=== PATIENT | female | born 1965 | race African-American/Black ===

== ENCOUNTER 2018-01-20 10:36 | Inpatient (IN) | payer SELFPAY ==
[2018-01-20] MEDS ORDERED: Albuterol Sulfate 2.5 mg/0.5 ml Neb ONE ×3 (11:07)
[2018-01-20] MEDS ORDERED: Albuterol Sulfate 2.5 mg/3 ml Neb ONE (11:08)
[2018-01-20] MEDS ORDERED: Lorazepam 2 MG/ML VIAL ONE (13:15)
--- NOTE | 2018-01-20 13:24 | HP ---
DATE OF ADMISSION: 01/20/2018 PRIMARY CARE PHYSICIAN: [facility] call admission. The patient is following sometimes [facility]. REASON FOR ADMISSION: Transfer from [place] emergency room for COPD exacerbation. HISTORY OF PRESENT ILLNESS: A 52-year-old female who has underlying history of COPD/asthma as well as a history of smoking. She reports that she quit smoking for last 2 months. She presented to emergency room at [place] [facility] for increasing shortness of breath, cough. The patient reports that she is having cough productive of yellowish green sputum. She was wheezing. She was not able to breathe and her condition day by day gradually getting worse. She was feeling mild shortness of breath for last 1 week, but her condition deteriorated for the last couple of days and last night, she was not able to breathe and that is why she has to go to ER for evaluation. The patient was hypoxic and her saturation was 80%. The patient does not have any previous history of intubation. The patient was initially treated with magnesium sulfate, Solu-Medrol, DuoNeb therapy as well as empiric antibiotic therapy with Rocephin and Levaquin and subsequently the patient was transferred to our emergency room. When the patient came to our emergency room, the patient's condition was a little bit deteriorated, that is why she required BiPAP. Initially, plan was to admit to medical floor, but as the patient's condition deteriorated in the ER and she required BiPAP and that is why we decided to keep this patient in IMCU. The patient denies any lower extremity edema. She denies any calf tenderness. She denies any pleurisy. She denies any UTI symptoms. She denies any constipation, diarrhea. She does report vague chest discomfort, which she attributes to due to her coughing. She also has cough related headache. For the last 2 nights, the patient was not able to sleep because of coughing and shortness of breath. She denies any flu-like illness. She denies any upper respiratory symptoms prior to this. EMERGENCY ROOM COURSE: The patient is given Rocephin 1 gram, Levaquin 500 mg, Solu-Medrol 125 mg, DuoNeb, magnesium sulfate 2 gram and the patient is given albuterol nebulization in our emergency room. ALLERGIES: PENICILLIN. CURRENT HOME: Albuterol nebulization as needed basis. PAST MEDICAL HISTORY: COPD, ex-smoker, history of hepatitis C. PAST SURGICAL HISTORY: , D and C. PAST PSYCHIATRIC HISTORY: Reviewed and negative. SOCIAL HISTORY: The patient is a former smoker. She quit smoking 2 months ago. She drinks alcohol socially. She is a former drug abuser. She abused cocaine, but she reports that she is clean since July. FAMILY HISTORY: No strong family history of premature coronary artery disease, stroke or cancer. REVIEW OF SYSTEMS: All review of system reviewed with the patient and negative except as mentioned in the HPI. Constitutional: Weight loss or gain, ability to conduct usual activities. Skin: Rash, itching. Eyes: Double vision, pain. ENT/Mouth: Nose bleeding, neck stiffness, pain, tenderness. Cardiovascular: Palpitations, dyspnea on exertion, orthopnea. Respiratory: Shortness of breath, wheezing, cough, hemoptysis, fever or night sweats. Gastrointestinal: Poor appetite, abdominal pain, heartburn, nausea, vomiting, constipation, or diarrhea. Genitourinary: Urgency, frequency, dysuria, nocturia. Musculoskeletal: Pain, swelling. Neurologic/Psychiatric: Anxiety, depression. Allergy/Immunologic: Skin rash, bleeding tendency. PHYSICAL EXAMINATION: VITAL SIGNS: In our emergency room, blood pressure 145/82, pulse 100, respiratory rate 20, temperature 98.4, saturation 95% with BiPAP, weight 82.2 kilograms. GENERAL: The patient is currently in mild respiratory distress, on BiPAP. HEAD: Normocephalic, atraumatic. EYES: Pupils round and reactive to light. Extraocular muscle intact. ENT: Oropharynx within normal limits. Moist mucous membranes. No oral lesion , no pharyngeal erythema, no exudate. NECK: Supple, no JVD, no thyromegaly, no carotid bruit. LUNGS: Bilateral end expiratory wheezing, tachypnea. The patient is not able to talk in full sentences. No rales. The patient gets tachypnea with talking. Accessory muscles of respiration in use. CARDIAC: S1, S2 regular, tachycardia, no murmur, no gallop, no rub. ABDOMEN: Soft, bowel sounds present, nontender, nondistended. No organomegaly , no mass, no suprapubic tenderness. BACK: Unremarkable. No CVA tenderness. EXTREMITIES: Upper extremities, passive movement of all joints are normal. Lower extremities, no edema. Good distal pulsation. SKIN: No skin rash. HEMATOLOGICAL: No lymphadenopathy. PSYCHIATRIC: Anxious affect. NEUROLOGIC: Nonfocal examination. SIGNIFICANT LABORATORY DATA: CBC, WBC 11.6, hemoglobin 14.0, platelet 368,000. BMP, sodium 136, potassium 4.3, chloride 100, carbon dioxide 26, BUN 9, creatinine 0.76, glucose 105, calcium 10.0. Lactic acid 1.3. LFT, AST 19, ALT 18, alkaline phosphatase 121, albumin 4.1. CK 86, CK-MB 2.1. Troponin I less than 0.010. Urinalysis unremarkable. IMAGING: CT angiography done at the [place] emergency room showed no evidence of pulmonary embolism, emphysematous changes in both lungs. Chest x-ray consistent with COPD changes, but no acute cardiopulmonary process. EKG showing sinus rhythm. ASSESSMENT AND PLAN: 1. Acute respiratory failure with hypoxia due to chronic obstructive pulmonary disease exacerbation. The patient is requiring BiPAP. We will keep this patient in IMCU. We will consult Pulmonology. We will wean BiPAP as tolerated. We will try to wean oxygen as tolerated. We will treat underlying chronic obstructive pulmonary disease exacerbation. We will closely monitor for any hemodynamic compromise. 2. Acute on chronic obstructive pulmonary disease exacerbation with acute hypoxic respiratory failure. Precipitating factor uncertain, but suspecting weather change and viral illness. The patient will be given empiric antibiotic therapy with Levaquin 500 mg IV daily, DuoNeb every 4 hourly, Dulera 2 puffs inhalation b.i.d., Mucinex 600 mg twice daily, Solu-Medrol 40 mg IV q.6 hourly. Pulmonary group will be consulted. The patient will be given appropriate flu and pneumonia vaccination during this admission. 3. Ex-smoker. The patient is given education to continue to quit smoking. 4. History of polysubstance abuse. We will just check urine drug screen to rule out any possible use of drugs, though the patient claims that she is clean since July. 5. History of hepatitis C. Her LFT is completely normal. I am doubtful about this diagnosis. We will check hepatitis profile to see current status. Her previous ultrasound gallbladder was normal. 6. Deep venous thrombosis prophylaxis. Lovenox 40 mg subcu daily. 7. Gastrointestinal prophylaxis. Pepcid 20 mg p.o. b.i.d. 8. Code status, the patient is full code. The patient does not have any surrogate decision maker. Disposition plan based on clinical course. Upon stabilization in IMCU, the patient will be transferred to medical floor and then we will consider discharging when the patient is more stable. JACE
[2018-01-20] MEDS ORDERED: Cepastat Lozenges 1 LOZ PO PRN (14:12)
[2018-01-20] MEDS ORDERED: cloNIDine 0.1 MG TAB PO PRN (14:12)
[2018-01-20] MEDS ORDERED: Ondansetron PF 4 MG/2 ML Vial IVP PRN (14:12)
[2018-01-20] MEDS ORDERED: Calcium Carbonate 500 MG ChewTAB PO PRN (14:12)
[2018-01-20] MEDS ORDERED: Artificial Tear Sol 15 ML BOT EA EYE PRN (14:12)
[2018-01-20] MEDS ORDERED: Loratadine 10 MG TAB PO PRN (14:12)
[2018-01-20] MEDS ORDERED: Bisacodyl 10 MG SUPP PR PRN (14:12)
[2018-01-20] MEDS ORDERED: HYDROcodone/Acetaminophen 5/325 mg Tablet PO PRN (14:12)
[2018-01-20] MEDS ORDERED: Sodium Chloride 0.65% Nasal 44 ML BOT EA NARE PRN (14:12)
[2018-01-20] MEDS ORDERED: Senokot S 8.6-50 MG TAB PO PRN (14:12)
[2018-01-20] MEDS ORDERED: Zolpidem Tartrate 5 MG TAB PO PRN (14:12)
[2018-01-20] MEDS ORDERED: Loperamide HCl 2 MG CAP PO PRN (14:12)
[2018-01-20] MEDS ORDERED: Acetaminophen 325 MG TAB PO PRN (14:12)
[2018-01-20] MEDS ORDERED: hydrALAZINE 20 MG/ML VIAL SLOW IVP PRN (14:12)
[2018-01-20] MEDS ORDERED: Eucerin (Mineral Oil/Petrolatum,White) 30 gm Jar TOP PRN (14:12)
[2018-01-20] MEDS ORDERED: Ondansetron ODT 4 MG TAB PO PRN (14:12)
[2018-01-20 15:17] VITALS: BMI 30.3
[2018-01-20] MEDS: Diabetic Tussin 200 MG/10 ML UDCUP PO PRN (15:41)
[2018-01-20 16:05] LABS: Actual Bicarbonate (HCO3a) 28.3 mEq/L (22-28); Base Excess (BEa) 1.9 mEq/L (-2.0 to +3.0); CO2 Tension 51.4 mmHg (35.0-45.0); Carboxyhemoglobin (COHb) 2.8 gm% (0.0-3.0); Hemoglobin (Hb) 13.8 g/dL (12.0-16.0); O2 Tension (PaO2) 67.4 mmHg (80.0-100.0); pH, Arterial 7.36 (7.35-7.45)
[2018-01-20 16:06] LABS: Puncture Site LRA
[2018-01-20 17:01] LABS: Amphetamine Not Detected (NotDetected); Barbiturates Screen Not Detected (NotDetected); Benzodiazepine Screen Not Detected (NotDetected); Cocaine Metabolite Screen Detected (NotDetected); Medtox Reader # READER 4; Methadone Not Detected (NotDetected); Methamphetamine Not Detected (NotDetected); Opiate Screen Not Detected (NotDetected); Oxycodone Screen Not Detected (NotDetected); Phencyclidine (PCP) Not Detected (NotDetected); THC/Cannabinoid Screen Not Detected (NotDetected); Tricyclic Screen Not Detected (NotDetected)
[2018-01-20 17:02] LABS: Medtox Control Line Valid? VALID (VALID)
[2018-01-20 17:04] LABS: Acetaminophen Less than 6.0 mcg/mL (10.0-30.0); Alcohol Less than 10 mg/dL (Less than 10); Salicylate Less than 8.0 mg/dL (15.0-30.0)
--- NOTE | 2018-01-20 18:22 | CON ---
DATE OF CONSULTATION: 01/20/2018 CONSULTING PHYSICIAN: Dr. Ross. REASON FOR CONSULTATION: COPD exacerbation. HISTORY OF PRESENT ILLNESS: This is a 52-year-old female from [place], who presented to that [facility] earlier today with increasing shortness of breath present over the last couple of weeks. She said it was so bad today. She felt like she would not be able to breathe and that is why she sought [facility]. She was placed on BiPAP. She was found to be hypoxic on presentation. She has been treated with steroids, breathing treatments, and antibiotics and was on BiPAP up until the time when I interv iewed her, when I took her off of her nasal cannula. She was smoking up until about 2-3 months ago. She also did marijuana and crack cocaine up until 2-3 months ago. PAST MEDICAL HISTORY: 1. COPD/asthma. 2. Chronic hepatitis C. PAST SURGICAL HISTORY: D&C. ALLERGIES: PENICILLIN. MEDICATION: Albuterol nebulization solution as needed. SOCIAL HISTORY: See above. Drinks alcohol socially. FAMILY MEDICAL HISTORY: Remarkable for asthma. REVIEW OF SYSTEMS: Otherwise, negative. PHYSICAL EXAMINATION: VITAL SIGNS: Temperature 98.6, pulse 113, respirations 26, O2 98% on BiPAP, blood pressure 126/77. GENERAL: The patient is in mild to moderate respiratory discomfort. HEENT: Very poor dentition. NECK: No adenopathy or JVD. LUNGS: Diffuse, mild to moderate expiratory wheezing with prolonged expiratory phase. CARDIAC: S1, S2 regular, tachycardic. ABDOMEN: Soft, nontender. No accessory muscle use. EXTREMITIES: No edema. LABORATORY DATA AND IMAGING DATA: White blood cell count 11.6, hematocrit 44.2, platelet count 368 w ith 75% neutrophils, 18% bands. Sodium 136, potassium 4.3, chloride 100, CO2 26, BUN 9, creatinine 0 .7, glucose 105. Urinalysis showed trace amount of blood. Tox screen is pending. Chest x-ray showe d no mass, effusion or infiltrate. ASSESSMENT: Asthmatic bronchitis/chronic obstructive pulmonary disease exacerbation. PLAN: Agree with steroids, nebulizers, antibiotics and BiPAP therapy. I will go ahead and check an ABG and make sure we are not dealing with overt CO2 retention. We will follow with you.
[2018-01-20] MEDS: Mometasone/Formoterol 120 PUFF INHALER INH SCH (18:35)
[2018-01-20] MEDS: Famotidine 20 MG TAB PO SCH (20:02)
[2018-01-20] MEDS: guaiFENesin ER 600 MG TAB PO SCH (20:03)
[2018-01-21 04:00] LABS: #Lymphocytes 0.7 thou/uL (1.20-3.40); #Monocytes 0.2 thou/uL (0.11-0.59); #Neutrophils 8.1 thou/uL (1.40-6.50); %Basophils 0.3 % (0.0-1.0); %Eosinophils 0.1 % (0.0-10.0); %Lymphocytes 7.3 % (21.0-51.0); %Monocytes 2.5 % (0.0-10.0); %Neutrophils 89.8 % (42.0-75.0); Hemoglobin 12.9 g/dL (12.0-16.0); Mean Corpuscular HGB CONC 30.3 g/dL (32.0-36.0); Mean Corpuscular Hemoglobin 27.5 pg (27.0-31.0); Mean Corpuscular Volume 90.6 fL (78.0-98.0); Platelet Count 338 thou/uL (130-400); RBC Distribution Width 14.7 % (11.5-14.5); Red Blood Cell (RBC) Count 4.71 mill/uL (4.20-5.40); White Blood Cell (WBC) Count 9.1 thou/uL (4.8-10.8)
[2018-01-21 04:22] LABS: ALT (SGPT) 13 U/L (8-55); AST (SGOT) 11 U/L (5-34); Albumin 3.8 g/dL (3.5-5.0); Alkaline Phosphatase 107 U/L (40-150); Anion Gap 12 mmol/L (10-20); BUN (Urea Nitrogen) 11 mg/dL (9.8-20.1); Bilirubin, Total 0.2 mg/dL (0.2-1.2); Calc. Creatinine Clearance 104 mL/min (70-130); Calcium 9.5 mg/dL (7.8-10.44); Carbon Dioxide 26 mmol/L (22-29); Chloride 99 mmol/L (98-107); Estimated GFR-MDRD 89; Glucose 297 mg/dL (70-105); Potassium 4.6 mmol/L (3.5-5.1); Protein, Total 7.8 g/dL (6.0-8.3); Sodium 132 mmol/L (136-145)
[2018-01-21 04:39] LABS: HBCM Index 0.07 S/CO (0-0.79); HBSAg Index 0.19 S/CO (0-0.99); Hep A IgM AB Non-Reactive (NonReactive); Hep A IgM S/CO 0.12 S/CO (0-0.79); Hep B Surf Ag Non-Reactive S/CO (NonReactive); Hepatitis B Core IgM Abs Non-Reactive (NonReactive)
[2018-01-21 05:41] LABS: Hep C IgG Ab Reflex HepC Qnt (NonReactive)
[2018-01-21] MEDS: Mometasone/Formoterol 120 PUFF INHALER INH SCH ×2 (06:08→19:03)
[2018-01-21 07:09] LABS: Hemoglobin A1c 5.1 % (4.0-6.0)
[2018-01-21] MEDS: Enoxaparin Sodium 40 MG/0.4 ML SYRINGE SC SCH (08:45)
[2018-01-21] MEDS: Famotidine 20 MG TAB PO SCH ×2 (08:45→20:47)
[2018-01-21] MEDS: guaiFENesin ER 600 MG TAB PO SCH ×2 (08:45→20:47)
--- NOTE | 2018-01-21 11:39 | PDOC.PN ---
- Subjective Encounter Start Date: 01/21/18 Encounter Start Time: 10:00 -: old records requested/rev Patient seen and examined. No new complaints. No overnight events pt is doing well, now off bipap - Objective Resuscitation Status: Resuscitation Status FULL:Full Resuscitation MAR Reviewed: Yes Vital Signs & Weight: Vital Signs (12 hours) Temp Pulse Resp BP Pulse Ox 01/21/18 10:49 97.9 F 107 H 18 126/75 94 L 01/21/18 09:43 107 H 99 01/21/18 07:23 98.6 F 102 H 22 H 127/73 96 01/21/18 07:20 94 L 01/21/18 06:07 91 20 95 01/21/18 04:00 98.2 F 108 H 20 138/73 94 L 01/21/18 02:12 88 20 97 01/21/18 00:00 98.0 F 96 16 121/68 96 Weight Weight 183 lb 6 oz I&O: 01/20/18 01/21/18 01/22/18 06:59 06:59 06:59 Intake Total 1960 Output Total 3000 Balance -1040 Result Diagrams: 01/21/18 03:34 01/21/18 03:34 EKG Reviewed by me: Yes (nsr) Phys Exam - Physical Examination Constitutional: NAD HEENT: PERRLA, moist MMs, sclera anicteric Neck: no JVD, supple Respiratory: no rales, wheezing present Cardiovascular: RRR, no significant murmur, no rub Gastrointestinal: soft, non-tender, no distention, positive bowel sounds Musculoskeletal: no edema, pulses present Neurological: non-focal, normal sensation Psychiatric: normal affect, A&O x 3 Skin: no rash, normal turgor Dx/Plan (1) Acute respiratory failure with hypoxia and hypercapnia Code(s): J96.01 - ACUTE RESPIRATORY FAILURE WITH HYPOXIA; J96.02 - ACUTE RESPIRATORY FAILURE WITH HYPERCAPNIA Status: Acute (2) COPD exacerbation Code(s): J44.1 - CHRONIC OBSTRUCTIVE PULMONARY DISEASE W (ACUTE) EXACERBATION Status: Acute (3) Cocaine abuse Code(s): F14.10 - COCAINE ABUSE, UNCOMPLICATED Status: Acute (4) Chronic hepatitis C Code(s): B18.2 - CHRONIC VIRAL HEPATITIS C Status: Chronic (5) Ex-smoker for less than 1 year Code(s): Z78.9 - OTHER SPECIFIED HEALTH STATUS Status: Chronic (6) Obesity (BMI 30.0-34.9) Code(s): E66.9 - OBESITY, UNSPECIFIED Status: Chronic - Plan cont current plan of care, continue antibiotics, respiratory therapy * continue IV levaquin, solumedrol, duoneb, dulera, mucinex * counselled to avoid coccaine * today stable for transfer to medical * medication reviewed as below * symptomatic treatment. Review of Systems - Review of Systems Constitutional: negative: fever, chills, sweats, weakness, malaise, other Eyes: negative: Pain, Vision Change, Conjunctivae Inflammation, Eyelid Inflammation, Redness, Other ENT: negative: Ear Pain, Ear Discharge, Nose Pain, Nose Discharge, Nose Congestion, Mouth Pain, Mouth Swelling, Throat Pain, Throat Swelling, Other Respiratory: Cough, Shortness of Breath, SOB with Excertion, Wheezing. negative : Dry, Hemoptysis, Pleuritic Pain, Sputum Cardiovascular: negative: chest pain, palpitations, orthopnea, paroxysmal nocturnal dyspnea, edema, light headedness, other Gastrointestinal: negative: Nausea, Vomiting, Abdominal Pain, Diarrhea, Constipation, Melena, Hematochezia, Other Genitourinary: negative: Dysuria, Frequency, Incontinence, Hematuria, Retention , Other Musculoskeletal: negative: Neck Pain, Shoulder Pain, Arm Pain, Back Pain, Hand Pain, Leg Pain, Foot Pain, Other Skin: negative: Rash, Lesions, Rock, Bruising, Other - Medications/Allergies Allergies/Adverse Reactions: Allergies Allergy/AdvReac Type Severity Reaction Status Date / Time Penicillins AdvReac Verified 01/20/18 15:17 Medications: Current Medications Acetaminophen (Tylenol) 650 mg PO Q4H PRN PRN Reason: Headache/Fever/Mild Pain (1-3) Last Admin: 01/20/18 15:41 Dose: 650 mg Hydrocodone Bitart/Acetaminophen ([place] 5/325) 1 tab PO Q4H PRN PRN Reason: Moderate Pain (4-6) Albuterol/Ipratropium (Duoneb) 3 ml NEB [id number] KA[place]LYN Last Admin: 01/21/18 09:43 Dose: 3 ml Artificial Tears (Tears Renewed 15ml Bottle) 2 drop EA EYE PRN PRN PRN Reason: Dry Eyes Bisacodyl (Dulcolax) 10 mg NC DAILYPRN PRN PRN Reason: Constipation Bisacodyl (Dulcolax) 10 mg PO DAILYPRN PRN PRN Reason: Constipation Calcium Carbonate (Tums) 1,000 mg PO Q4H PRN PRN Reason: Heartburn or Indigestion Clonidine (Catapres) 0.1 mg PO Q4H PRN PRN Reason: SBP > ____ Enoxaparin Sodium (Lovenox) 40 mg SC 0900 [facility] Last Admin: 01/21/18 08:45 Dose: 40 mg Famotidine (Pepcid) 20 mg PO BID [facility] Last Admin: 01/21/18 08:45 Dose: 20 mg Guaifenesin (Mucinex) 600 mg PO Q12HR [facility] Last Admin: 01/21/18 08:45 Dose: 600 mg Guaifenesin (Robitussin Sf) 200 mg PO Q4H PRN PRN Reason: Cough Last Admin: 01/20/18 15:41 Dose: 200 mg Hydralazine HCl (Apresoline) 10 mg SLOW IVP Q4H PRN PRN Reason: SBP > 180 and HR < 70 Levofloxacin 500 mg/ Device 100 mls @ 100 mls/hr IVPB Q24HR [facility] Last Admin: 01/21/18 08:45 Dose: 100 mls Loperamide HCl (Imodium) 2 mg PO PRN PRN PRN Reason: Diarrhea/Loose Stools Loratadine (Claritin) 10 mg PO DAILYPRN PRN PRN Reason: Sinus Symptoms Methylprednisolone Sodium Succinate (Solu-Medrol) 40 mg IVP Q6HR [facility] Last Admin: 01/21/18 06:11 Dose: 40 mg Mineral Oil/White Petrolatum (Eucerin Cream) 0 gm TOP BIDPRN PRN PRN Reason: Dry Skin Mometasone Furoate/Formoterol Fumar (Dulera 200 Mcg/5 Mcg Inhaler) 2 puff INH BID-RT [facility] Last Admin: 01/21/18 06:08 Dose: 2 puff Ondansetron HCl (Zofran Odt) 4 mg PO Q6H PRN PRN Reason: Nausea/Vomiting Ondansetron HCl (Zofran) 4 mg IVP Q6H PRN PRN Reason: Nausea/Vomiting Senna/Docusate Sodium (Senokot S) 2 tab PO BID PRN PRN Reason: Constipation Sodium Chloride ([place] Nasal [place] 0.65%) 0 ml EA NARE QIDPRN PRN PRN Reason: Nasal Congestion Throat Lozenges (Cepastat Lozenges) 1 colin PO Q2H PRN PRN Reason: Sore Throat Zolpidem Tartrate (Ambien) 5 mg PO HSPRN PRN PRN Reason: Insomnia
--- NOTE | 2018-01-21 12:07 | PRG ---
DATE OF SERVICE: 01/20/2018 SUBJECTIVE: She feels better this morning. PHYSICAL EXAMINATION: VITAL SIGNS: Temperature 97.9, pulse 107, respiration 18, O2 saturation 94% on 3 liters, blood press ure 126/75. HEENT: Unremarkable. NECK: No JVD. LUNGS: She has some very mild wheezing, but overall it is much better than yesterday. CARDIAC: S1 and S2 regular. ABDOMEN: Soft. EXTREMITIES: No edema. LABORATORY DATA: White blood cell count 9.1, hematocrit 42.7, platelet count 338. Sodium 132, potas sium 4.6, chloride 99, CO2 26, BUN 11, creatinine 0.8, glucose 297. Urine drug screen showed cocaine . ASSESSMENT: Asthma exacerbation, probably aggravated by cocaine use. PLAN: She is off the BiPAP. Apparently, she is being transferred out to the floor. I have no issue with that. Continue steroids, nebs.
[2018-01-22] MEDS: Sodium Chloride 0.9% 10 ML ONE ×2 (00:22→14:36)
[2018-01-22] MEDS: Sodium Chloride 0.9% 20 ML ONE ×2 (05:51→09:52)
[2018-01-22] MEDS: Bisacodyl 5 MG TAB PO PRN ×2 (05:55→14:35)
[2018-01-22] MEDS: Mometasone/Formoterol 120 PUFF INHALER INH SCH ×2 (08:40→18:46)
[2018-01-22] MEDS: Famotidine 20 MG TAB PO SCH ×2 (09:52→20:02)
[2018-01-22] MEDS: Enoxaparin Sodium 40 MG/0.4 ML SYRINGE SC SCH (09:52)
--- NOTE | 2018-01-22 10:40 | PDOC.PN ---
- Subjective Encounter Start Date: 01/22/18 Encounter Start Time: 07:10 Patient seen and examined. No new complaints. No overnight events - Objective Resuscitation Status: Resuscitation Status FULL:Full Resuscitation MAR Reviewed: Yes Vital Signs & Weight: Vital Signs (12 hours) Temp Pulse Resp BP Pulse Ox 01/22/18 08:40 88 20 95 01/22/18 08:25 95 01/22/18 08:21 88 20 95 01/22/18 08:00 98.4 F 87 20 116/56 L 94 L 01/22/18 03:15 90 20 95 Weight Weight 183 lb 6 oz I&O: 01/21/18 01/22/18 01/23/18 06:59 06:59 06:59 Intake Total 1960 900 Output Total 3000 Balance -1040 900 Result Diagrams: 01/21/18 03:34 01/21/18 03:34 Phys Exam - Physical Examination Constitutional: NAD HEENT: PERRLA, moist MMs, sclera anicteric Neck: no JVD, supple Respiratory: no rales, wheezing present Cardiovascular: RRR, no significant murmur, no rub Gastrointestinal: soft, non-tender, no distention, positive bowel sounds Musculoskeletal: no edema, pulses present Neurological: non-focal, normal sensation, moves all 4 limbs Psychiatric: normal affect, A&O x 3 Skin: no rash, normal turgor Dx/Plan (1) Acute respiratory failure with hypoxia and hypercapnia Code(s): J96.01 - ACUTE RESPIRATORY FAILURE WITH HYPOXIA; J96.02 - ACUTE RESPIRATORY FAILURE WITH HYPERCAPNIA Status: Acute (2) COPD exacerbation Code(s): J44.1 - CHRONIC OBSTRUCTIVE PULMONARY DISEASE W (ACUTE) EXACERBATION Status: Acute (3) Cocaine abuse Code(s): F14.10 - COCAINE ABUSE, UNCOMPLICATED Status: Acute (4) Chronic hepatitis C Code(s): B18.2 - CHRONIC VIRAL HEPATITIS C Status: Chronic (5) Ex-smoker for less than 1 year Code(s): Z78.9 - OTHER SPECIFIED HEALTH STATUS Status: Chronic (6) Obesity (BMI 30.0-34.9) Code(s): E66.9 - OBESITY, UNSPECIFIED Status: Chronic - Plan cont current plan of care, continue antibiotics, respiratory therapy * medication reviewed as below * symptomatic treatment * pt is improving * reduce solumedrol * continue respiratory therapy. * continue levaquin Review of Systems - Review of Systems Eyes: negative: Pain, Vision Change, Conjunctivae Inflammation, Eyelid Inflammation, Redness, Other ENT: negative: Ear Pain, Ear Discharge, Nose Pain, Nose Discharge, Nose Congestion, Mouth Pain, Mouth Swelling, Throat Pain, Throat Swelling, Other Respiratory: Cough, Shortness of Breath, Wheezing. negative: Dry, Hemoptysis, SOB with Excertion, Pleuritic Pain, Sputum Cardiovascular: negative: chest pain, palpitations, orthopnea, paroxysmal nocturnal dyspnea, edema, light headedness, other Gastrointestinal: negative: Nausea, Vomiting, Abdominal Pain, Diarrhea, Constipation, Melena, Hematochezia, Other Genitourinary: negative: Dysuria, Frequency, Incontinence, Hematuria, Retention , Other Musculoskeletal: negative: Neck Pain, Shoulder Pain, Arm Pain, Back Pain, Hand Pain, Leg Pain, Foot Pain, Other - Medications/Allergies Allergies/Adverse Reactions: Allergies Allergy/AdvReac Type Severity Reaction Status Date / Time Penicillins AdvReac Verified 01/20/18 15:17 Medications: Current Medications Acetaminophen (Tylenol) 650 mg PO Q4H PRN PRN Reason: Headache/Fever/Mild Pain (1-3) Last Admin: 01/20/18 15:41 Dose: 650 mg Hydrocodone Bitart/Acetaminophen ([place] 5/325) 1 tab PO Q4H PRN PRN Reason: Moderate Pain (4-6) Albuterol/Ipratropium (Duoneb) 3 ml NEB [id number] [facility] Last Admin: 01/22/18 08:21 Dose: 3 ml Artificial Tears (Tears Renewed 15ml Bottle) 2 drop EA EYE PRN PRN PRN Reason: Dry Eyes Bisacodyl (Dulcolax) 10 mg ME DAILYPRN PRN PRN Reason: Constipation Bisacodyl (Dulcolax) 10 mg PO DAILYPRN PRN PRN Reason: Constipation Last Admin: 01/22/18 05:55 Dose: 10 mg Calcium Carbonate (Tums) 1,000 mg PO Q4H PRN PRN Reason: Heartburn or Indigestion Clonidine (Catapres) 0.1 mg PO Q4H PRN PRN Reason: SBP > ____ Enoxaparin Sodium (Lovenox) 40 mg SC 0900 [facility] Last Admin: 01/22/18 09:52 Dose: 40 mg Famotidine (Pepcid) 20 mg PO BID [facility] Last Admin: 01/22/18 09:52 Dose: 20 mg Guaifenesin (Mucinex) 600 mg PO Q12HR [facility] Last Admin: 01/21/18 20:47 Dose: 600 mg Guaifenesin (Robitussin Sf) 200 mg PO Q4H PRN PRN Reason: Cough Last Admin: 01/20/18 15:41 Dose: 200 mg Hydralazine HCl (Apresoline) 10 mg SLOW IVP Q4H PRN PRN Reason: SBP > 180 and HR < 70 Levofloxacin 500 mg/ Device 100 mls @ 100 mls/hr IVPB Q24HR [facility] Last Admin: 01/22/18 09:51 Dose: 100 mls Loperamide HCl (Imodium) 2 mg PO PRN PRN PRN Reason: Diarrhea/Loose Stools Loratadine (Claritin) 10 mg PO DAILYPRN PRN PRN Reason: Sinus Symptoms Methylprednisolone Sodium Succinate (Solu-Medrol) 40 mg IVP Q6HR [facility] Last Admin: 01/22/18 05:51 Dose: 40 mg Mineral Oil/White Petrolatum (Eucerin Cream) 0 gm TOP BIDPRN PRN PRN Reason: Dry Skin Mometasone Furoate/Formoterol Fumar (Dulera 200 Mcg/5 Mcg Inhaler) 2 puff INH BID-RT [facility] Last Admin: 01/22/18 08:40 Dose: 2 puff Ondansetron HCl (Zofran Odt) 4 mg PO Q6H PRN PRN Reason: Nausea/Vomiting Ondansetron HCl (Zofran) 4 mg IVP Q6H PRN PRN Reason: Nausea/Vomiting Senna/Docusate Sodium (Senokot S) 2 tab PO BID PRN PRN Reason: Constipation Last Admin: 01/22/18 09:52 Dose: 2 tab Sodium Chloride ([place] Nasal [place] 0.65%) 0 ml EA NARE QIDPRN PRN PRN Reason: Nasal Congestion Throat Lozenges (Cepastat Lozenges) 1 colin PO Q2H PRN PRN Reason: Sore Throat Zolpidem Tartrate (Ambien) 5 mg PO HSPRN PRN PRN Reason: Insomnia
[2018-01-22] MEDS: Diabetic Tussin 200 MG/10 ML UDCUP PO PRN ×2 (11:05→17:18)
[2018-01-22] MEDS: guaiFENesin ER 600 MG TAB PO SCH ×2 (11:05→20:02)
--- NOTE | 2018-01-22 11:25 | PRG ---
DATE OF SERVICE: 01/22/2018 SUBJECTIVE: The patient is doing better. She is up and walking around. PHYSICAL EXAMINATION: VITAL SIGNS: Temperature is 98.4, pulse 88, respirations 20, O2 sat 95% on 3 liters. HEENT: Unremarkable. NECK: No JVD. CHEST: Clear without much wheezing. CARDIAC: S1 and S2 regular. ABDOMEN: Soft. EXTREMITIES: No edema. ASSESSMENT: Improved asthma exacerbation, which probably be aggravated by cocaine use. PLAN: The patient is safe to discharge at any time from my standpoint, she felt like she needs to st ay in the hospital another day. I will leave it up to the primary service.
[2018-01-22] MEDS ORDERED: Sodium Chloride 0.9% 10 ML ONE (22:40)
[2018-01-23] MEDS: Mometasone/Formoterol 120 PUFF INHALER INH SCH (07:39)
[2018-01-23 08:37] VITALS: BP 109/58; TEMP 97.4
[2018-01-23] MEDS: Diabetic Tussin 200 MG/10 ML UDCUP PO PRN (08:55)
[2018-01-23] MEDS: Famotidine 20 MG TAB PO SCH (08:55)
[2018-01-23] MEDS: Enoxaparin Sodium 40 MG/0.4 ML SYRINGE SC SCH (08:55)
[2018-01-23] MEDS: Sodium Chloride 0.9% 10 ML ONE (08:56)
--- NOTE | 2018-01-23 09:55 | PDOC.PN ---
- Subjective Encounter Start Date: 01/23/18 Encounter Start Time: 07:20 -: old records requested/rev Patient seen and examined. No new complaints. No overnight events - Objective Resuscitation Status: Resuscitation Status FULL:Full Resuscitation MAR Reviewed: Yes Vital Signs & Weight: Vital Signs (12 hours) Temp Pulse Resp BP Pulse Ox 01/23/18 08:00 97.4 F L 88 16 109/58 L 97 01/23/18 07:40 97 01/23/18 07:39 97 16 97 01/23/18 07:37 97 16 97 01/23/18 02:22 84 18 97 01/23/18 00:55 82 18 93 L Weight Weight 183 lb 6 oz I&O: 01/22/18 01/23/18 01/24/18 06:59 06:59 06:59 Intake Total 900 1300 Balance 900 1300 Result Diagrams: 01/21/18 03:34 01/21/18 03:34 Phys Exam - Physical Examination Constitutional: NAD HEENT: PERRLA, moist MMs, sclera anicteric Neck: no JVD, supple Respiratory: no wheezing, no rales, no rhonchi Cardiovascular: RRR, no significant murmur, no rub Gastrointestinal: soft, non-tender, no distention, positive bowel sounds Musculoskeletal: no edema, pulses present Neurological: non-focal, normal sensation, moves all 4 limbs Psychiatric: normal affect, A&O x 3 Skin: no rash, normal turgor Dx/Plan (1) Acute respiratory failure with hypoxia and hypercapnia Code(s): J96.01 - ACUTE RESPIRATORY FAILURE WITH HYPOXIA; J96.02 - ACUTE RESPIRATORY FAILURE WITH HYPERCAPNIA Status: Acute (2) COPD exacerbation Code(s): J44.1 - CHRONIC OBSTRUCTIVE PULMONARY DISEASE W (ACUTE) EXACERBATION Status: Acute (3) Cocaine abuse Code(s): F14.10 - COCAINE ABUSE, UNCOMPLICATED Status: Acute (4) Chronic hepatitis C Code(s): B18.2 - CHRONIC VIRAL HEPATITIS C Status: Chronic (5) Ex-smoker for less than 1 year Code(s): Z78.9 - OTHER SPECIFIED HEALTH STATUS Status: Chronic (6) Obesity (BMI 30.0-34.9) Code(s): E66.9 - OBESITY, UNSPECIFIED Status: Chronic - Plan cont current plan of care, continue antibiotics, respiratory therapy * medication reviewed as below * symptomatic treatment * see discharge silvio. Review of Systems - Review of Systems ENT: negative: Ear Pain, Ear Discharge, Nose Pain, Nose Discharge, Nose Congestion, Mouth Pain, Mouth Swelling, Throat Pain, Throat Swelling, Other Respiratory: negative: Cough, Dry, Shortness of Breath, Hemoptysis, SOB with Excertion, Pleuritic Pain, Sputum, Wheezing Cardiovascular: negative: chest pain, palpitations, orthopnea, paroxysmal nocturnal dyspnea, edema, light headedness, other Gastrointestinal: negative: Nausea, Vomiting, Abdominal Pain, Diarrhea, Constipation, Melena, Hematochezia, Other Genitourinary: negative: Dysuria, Frequency, Incontinence, Hematuria, Retention , Other Musculoskeletal: negative: Neck Pain, Shoulder Pain, Arm Pain, Back Pain, Hand Pain, Leg Pain, Foot Pain, Other Skin: negative: Rash, Lesions, Rock, Bruising, Other - Medications/Allergies Allergies/Adverse Reactions: Allergies Allergy/AdvReac Type Severity Reaction Status Date / Time Penicillins AdvReac Verified 01/20/18 15:17 Medications: Current Medications Acetaminophen (Tylenol) 650 mg PO Q4H PRN PRN Reason: Headache/Fever/Mild Pain (1-3) Last Admin: 01/20/18 15:41 Dose: 650 mg Hydrocodone Bitart/Acetaminophen ([place]ling 5/325) 1 tab PO Q4H PRN PRN Reason: Moderate Pain (4-6) Albuterol/Ipratropium (Duoneb) 3 ml NEB [id number] [facility] Last Admin: 01/23/18 07:37 Dose: 3 ml Artificial Tears (Tears Renewed 15ml Bottle) 2 drop EA EYE PRN PRN PRN Reason: Dry Eyes Bisacodyl (Dulcolax) 10 mg MO DAILYPRN PRN PRN Reason: Constipation Bisacodyl (Dulcolax) 10 mg PO DAILYPRN PRN PRN Reason: Constipation Last Admin: 01/22/18 14:35 Dose: 10 mg Calcium Carbonate (Tums) 1,000 mg PO Q4H PRN PRN Reason: Heartburn or Indigestion Clonidine (Catapres) 0.1 mg PO Q4H PRN PRN Reason: SBP > ____ Enoxaparin Sodium (Lovenox) 40 mg SC 0900 [facility] Last Admin: 01/23/18 08:55 Dose: 40 mg Famotidine (Pepcid) 20 mg PO BID [facility] Last Admin: 01/23/18 08:55 Dose: 20 mg Guaifenesin (Mucinex) 600 mg PO Q12HR [facility] Last Admin: 01/22/18 20:02 Dose: 600 mg Guaifenesin (Robitussin Sf) 200 mg PO Q4H PRN PRN Reason: Cough Last Admin: 01/23/18 08:55 Dose: 200 mg Hydralazine HCl (Apresoline) 10 mg SLOW IVP Q4H PRN PRN Reason: SBP > 180 and HR < 70 Levofloxacin 500 mg/ Device 100 mls @ 100 mls/hr IVPB Q24HR [facility] Last Admin: 01/23/18 08:55 Dose: 100 mls Loperamide HCl (Imodium) 2 mg PO PRN PRN PRN Reason: Diarrhea/Loose Stools Loratadine (Claritin) 10 mg PO DAILYPRN PRN PRN Reason: Sinus Symptoms Methylprednisolone Sodium Succinate (Solu-Medrol) 40 mg IVP Q8HR [facility] Last Admin: 01/23/18 08:55 Dose: 40 mg Mineral Oil/White Petrolatum (Eucerin Cream) 0 gm TOP BIDPRN PRN PRN Reason: Dry Skin Mometasone Furoate/Formoterol Fumar (Dulera 200 Mcg/5 Mcg Inhaler) 2 puff INH BID-RT [facility] Last Admin: 01/23/18 07:39 Dose: 2 puff Ondansetron HCl (Zofran Odt) 4 mg PO Q6H PRN PRN Reason: Nausea/Vomiting Ondansetron HCl (Zofran) 4 mg IVP Q6H PRN PRN Reason: Nausea/Vomiting Senna/Docusate Sodium (Senokot S) 2 tab PO BID PRN PRN Reason: Constipation Last Admin: 01/22/18 09:52 Dose: 2 tab Sodium Chloride ([place] Nasal [place] 0.65%) 0 ml EA NARE QIDPRN PRN PRN Reason: Nasal Congestion Throat Lozenges (Cepastat Lozenges) 1 colin PO Q2H PRN PRN Reason: Sore Throat Zolpidem Tartrate (Ambien) 5 mg PO HSPRN PRN PRN Reason: Insomnia
--- NOTE | 2018-01-23 10:02 | PRG ---
DATE OF SERVICE: 01/23/2018 She feels better and wants to go home. PHYSICAL EXAMINATION: VITAL SIGNS: Temperature 97.4, pulse 88, respirations 16, O2 sat 97% on 3 liters, blood pressure 109 /58. HEENT: Unremarkable. NECK: Without adenopathy, JVD, or bruits. LUNGS: Clear. CARDIOVASCULAR: S1, S2 regular. ABDOMEN: Soft. EXTREMITIES: No edema. ASSESSMENT: Asthma exacerbation, which was aggravated by crack cocaine use. PLAN: The patient has been told not to smoke crack cocaine anymore. She is stable for discharge to home. She will need to be on a short steroid taper. Also, continue breathing treatments at home and may need some supplemental oxygen. She can follow up with her primary care doctor.
[2018-01-23] MEDS: guaiFENesin ER 600 MG TAB PO SCH (10:45)
--- NOTE | 2018-01-23 11:40 | DIS ---
DATE OF ADMISSION: 01/20/2018 DATE OF DISCHARGE 01/23/2018 PRIMARY CARE PHYSICIAN: [facility]. DISCHARGE DISPOSITION: Home. PRIMARY DISCHARGE DIAGNOSES: 1. Acute respiratory failure with hypoxia, resolved. 2. Cocaine abuse. 3. Chronic obstructive pulmonary disease exacerbation. SECONDARY DISCHARGE DIAGNOSES: Polysubstance abuse, chronic hepatitis C, COPD, obesity with BMI 30. PRIMARY PROCEDURE/OPERATION: None. RADIOLOGICAL INVESTIGATION: Patient had CT angiography negative for PE. Chest x-ray was unremarkabl e. SIGNIFICANT LABORATORY DATA: WBC 9.1, hemoglobin 12.9, platelets 338. A pH 7.316, CO2 of 51.4, O2 o f 67.4, bicarbonate 28.3 saturation 95%. The sodium 132, potassium 4.6, BUN 11, creatinine 0.81, kerry cium 9.5, hemoglobin A1c 5.1. LFT normal. Urine drug screen positive for cocaine. Serum drug scree n negative. Hepatitis C positive. DISCHARGE MEDICATIONS: Ventolin inhaler 2 puffs q.6 hourly p.r.n.; Dulera two puff inhalation b.i.d. ; prednisone 40 mg p.o. daily for 5 days, then 20 mg p.o. daily for 5 days, then 10 mg p.o. daily for 5 days; Levaquin 500 mg p.o. daily for 7 days; Mucinex 600 mg twice daily; Pepcid 20 mg p.o. b.i.d. CONTRAINDICATIONS: None. CODE STATUS: FULL CODE. INPATIENT CONSULTANTS: Dr. Jang was following while in hospital. ALLERGIES: PENICILLIN. TEST RESULTS PENDING ON DISCHARGE: None. DISCHARGE PLAN: Post hospital, the patient is instructed to follow with primary care physician in 1 week. HOSPITAL COURSE: A 52-year-old female with above-mentioned medical problem who was admitted by me on 01/20/2018. Please see my HPI for further details. The patient had a crack cocaine abuse and subse quently for the last 1 week, the patient was having increasing shortness of breath, cough productive of sputum without any chest pain. The patient was not improving and her condition day by day was get ting worse and that is why she went to [facility] where she had CT angiography which was negative for PE. Chest x-ray was unremarkable. Patient was sent to our hospital for respiratory fa ilure which was hypoxic and hypercapnic from chronic obstructive pulmonary disease exacerbation. She was requiring BiPAP and that is why she was admitted initially to [facility]. Next day, the patient was d oing very well and she was transferred to medical floor. We continued with IV steroid, empiric antib iotic therapy with Levaquin, Mucinex, Dulera and DuoNeb therapy. With this therapy, the patient's co ndition improved. While in hospital, we provided counseling to avoid smoking as well as cocaine abuse. Healthy lifesty le measures discussed with the patient. This patient is continuously high risk for recurrent admission because of her ongoing noncompliance a s well as nonfunding as well as polysubstance abuse. The patient is seen and examined at bedside today. Pulmonary, Neurology cleared her for discharge. This patient maintaining her oxygen saturation. Please see my progress note from today for further detail. Total time spent on discharge day 31 minutes.
[2018-01-24 13:18] LABS: Hep C PCR-Quant HCV Not Detected IU/mL (.)
== END 2018-01-23 13:02 | disposition home or self-care (01) | DRG 189 ==
LOC: ERS 10:36 → IMCU/EMU 14:08 → ONC 01-21 16:19
PROVIDERS: ADMIT Internal Medicine; ATTEND Internal Medicine
PROC: 5A09457 Assistance with Respiratory Ventilation, 24-96 Consecutive Hours, Continuous Positive Airway Pressure (ICD-10-PCS; principal; 2018-01-20)
DX: J96.01 Acute respiratory failure with hypoxia (principal); J44.1 Chronic obstructive pulmonary disease with (acute) exacerbation; J45.901 Unspecified asthma with (acute) exacerbation; J96.02 Acute respiratory failure with hypercapnia; F14.10 Cocaine abuse, uncomplicated; B18.2 Chronic viral hepatitis C; Z87.891 Personal history of nicotine dependence; E66.9 Obesity, unspecified; Z86.718 Personal history of other venous thrombosis and embolism; Z68.30 Body mass index [BMI] 30.0-30.9, adult
CPT/HCPCS: 36415; 80053; 80074; 80306; 80307; 82805; 83036; 85025; 87522; 90471; 90686; 90732; 94640; 94644; 94660; 94760; 96374; G0008; G0009; J1650; J1956; J2060; J2920; J7611; J7620

== ENCOUNTER 2019-04-09 11:15 | Inpatient (IN) | payer SELFPAY ==
[2019-04-09] MEDS ORDERED: Albuterol Sulfate 2.5 mg/0.5 ml Neb ONE (12:27)
[2019-04-09] MEDS ORDERED: Magnesium 2 GM/50 ML BAG (IN WATER) ONE (12:27)
[2019-04-09] MEDS ORDERED: Ibuprofen 200 MG TAB PO PRN (16:16)
[2019-04-09] MEDS ORDERED: Ondansetron ODT 4 MG TAB PO PRN (16:16)
[2019-04-09] MEDS ORDERED: Ondansetron PF 4 MG/2 ML Vial IVP PRN (16:16)
[2019-04-09] MEDS ORDERED: hydrALAZINE 20 MG/ML VIAL SLOW IVP PRN (16:16)
[2019-04-09 16:36] VITALS: BMI 30.2
[2019-04-09] MEDS: Sodium Chloride 0.9% 1,000 ML IV SCH (16:39)
[2019-04-09] MEDS: Benzonatate 100 MG CAP PO PRN (16:46)
[2019-04-09] MEDS: methylPREDNISolone Sod Succ 40 MG VIAL IVP SCH (17:14)
[2019-04-09] MEDS: Famotidine 20 MG TAB PO SCH (20:23)
[2019-04-09] MEDS: Cefepime 2 GM in Sodium Chloride 0.9% 100 ML IVPB SCH (20:23)
[2019-04-09] MEDS: Guaifenesin DM 100-10/5 ML UDCUP PO PRN (20:24)
--- NOTE | 2019-04-09 20:57 | HP ---
PRIMARY CARE PROVIDER: Patrick Murphy. CHIEF COMPLAINT: Cough and shortness of breath. HISTORY OF PRESENT ILLNESS: This is a 53-year-old female, who presents to [facility] Emergency Department complaining of approximately 5-day history of persistent cough, fever, shortness of breath and general body aches. The patient with chronic obstructive pulmonary disease and prior tobacco use, on home oxygen at 2 to 3 L/minute by nasal cannula as needed, who presents with a 5-day history of symptoms as stated previously. The patient denied any specific exposure history, travel, or family members with similar symptoms. The patient states she is current on her influenza and pneumonia vaccinations. The patient denied any hematemesis, change to bowel habits, or dysuria. The patient denied taking any home remedies other than [id number] cough medications and her home nebulizers. The patient admitted to persistent wheezing and difficulty with shortness of breath, necessitating an ER visit. In the emergency room, the patient underwent general evaluation including plain chest x-rays and CT angiogram of the chest showing evidence of multifocal pneumonia. The patient received IV Levaquin in addition to 125 mg of Solu-Medrol, bronchodilator therapy with DuoNebs and intravenous normal saline. PAST MEDICAL HISTORY: 1. Chronic obstructive pulmonary disease. 2. Former tobacco use. 3. Chronic hepatitis C. 4. Gastroesophageal reflux disease. 5. Chronic hypoxic respiratory failure, on chronic oxygen supplementation. 6. History of cocaine use. PAST SURGICAL HISTORY: 1. Status post section. 2. Status post dilation and curettage. CURRENT MEDICATIONS: 1. DuoNebs. 2. Ventolin HFA 2 puffs inhaled q.6 hours p.r.n. ALLERGIES: TO PENICILLIN. FAMILY HISTORY: No inheritable diseases per patient report. SOCIAL HISTORY: Former tobacco use. Occasional alcohol use. Remote history of cocaine abuse. REVIEW OF SYSTEMS: CONSTITUTIONAL: Negative for weight loss or gain, ability to conduct usual activities. SKIN: Negative for rash, itching. EYES: Negative for double vision, pain. ENT/MOUTH: Negative for nose bleeding, neck stiffness, pain, tenderness. CARDIOVASCULAR: Negative for palpitations, dyspnea on exertion, orthopnea. RESPIRATORY: Negative for shortness of breath, wheezing, cough, hemoptysis, fever or night sweats. GASTROINTESTINAL: Negative for poor appetite, abdominal pain, heartburn, nausea, vomiting, constipation, or diarrhea. GENITOURINARY: Negative for urgency, frequency, dysuria, nocturia. MUSCULOSKELETAL: Negative for pain, swelling. NEUROLOGIC/PSYCHIATRIC: Negative for anxiety, depression. ALLERGY/IMMUNOLOGIC: Negative for skin rash, bleeding tendency. Otherwise negative except as stated per HPI. PHYSICAL EXAMINATION: VITAL SIGNS: On admission, blood pressure 110/71, pulse 103, respiratory rate 22, temperature 98.2 degrees Fahrenheit, O2 saturation 94% on room air. GENERAL APPEARANCE: This is a 53-year-old female, alert and oriented x3, pleasant, responsive, in mild respiratory distress. HEENT: Pupils are equal, round, reactive to light and accommodation. Extraocular muscles are intact. No scleral icterus. No conjunctival injection. Nares patent. OP is clear. Multiple missing teeth. NECK: Supple. No cervical adenopathy. No thyromegaly. No carotid bruits. No JVD appreciated. Cervical spine with full active and passive range of motion. No meningeal signs noted. CHEST: Diminished breath sounds bilaterally with coarse rhonchi bilaterally. Expiratory wheezes noted. CARDIOVASCULAR: S1, S2 with tachycardia. No murmur, rub, or gallop appreciated. ABDOMEN: Rounded, soft, nontender, and nondistended. Bowel sounds are positive in all 4 quadrants. There is no hepatosplenomegaly. No abdominal bruits. No rebound or guarding appreciated. EXTREMITIES: Warm and dry with fair turgor. No clubbing, cyanosis, or asymmetric edema appreciated. Pulses palpable distally at the dorsalis pedis, posterior tibial, and popliteal arteries bilaterally. Capillary refill less than 2 seconds. NEUROLOGIC: Cranial nerves 2 through 12 are grossly intact. No focal or lateralizing signs appreciated. PERTINENT LABORATORY AND X-RAY FINDINGS: Basic metabolic profile within normal limits. Lactic acid level 1.0. LFTs within normal limits. BNP 12.3. CBC showed a white blood cell count of 11.1, hemoglobin 13.4, hematocrit 43, platelet count 222 with 82% neutrophilia. Portable chest x-ray dated 04/09/2019 showed no acute cardiopulmonary process. CT angiogram of the chest dated 04/09/2019 showed reticulonodular infiltrates in the anterior upper lobes, right greater than left, and patchy consolidation in the right middle lobe, lingula and lung bases. EKG dated 04/09/2019 by my interpretation shows a sinus tachycardia with heart rates in the 110s. Normal R-wave progression noted in the precordial leads. Normal axis. No acute ST-T wave changes appreciated. ASSESSMENT AND PLAN: 1. Multifocal bacterial pneumonia, right greater than left. The patient will be admitted to the medical floor. We will continue Levaquin 750 mg IV q.24 hours with additional cefepime 2 g IV q.12 hours. Solu-Medrol 40 mg IV q.6 hours with additional DuoNebs q.4 hours. Blood cultures pending x2. Continue oxygen supplementation to maintain O2 saturations greater than or equal to 90%. 2. Acute on chronic hypoxic respiratory failure. We will continue oxygen supplementation as noted in #1. Titrate to maintain O2 saturations greater than or equal to 90%. 3. Sinus tachycardia. Suspect multifactorial. We will continue IV fluids at 75 mL/h. Continue general supportive management. Suspect component of beta-2 agonist. 4. Tobacco abuse. We will offer smoking cessation resources. 5. Prophylaxis. SCDs while in bed. Pepcid 20 mg p.o. b.i.d.. CODE STATUS: Full. Surrogate medical decision maker is Lacie Schmitt. Job ID: [id number]
[2019-04-10] MEDS: methylPREDNISolone Sod Succ 40 MG VIAL IVP SCH ×4 (00:15→17:33)
[2019-04-10] MEDS: Sodium Chloride 0.9% 1,000 ML IV SCH ×2 (03:48→20:11)
[2019-04-10 05:57] LABS: Band 5 % (5-11); Hemoglobin 11.7 g/dL (12.0-16.0); Lymphocytes 8 % (21-51); MDiff Complete? YES; Mean Corpuscular HGB CONC 27.9 g/dL (32.0-36.0); Mean Corpuscular Hemoglobin 24.8 pg (27.0-31.0); Mean Corpuscular Volume 88.8 fL (78.0-98.0); Mean Platelet Volume 8.8 fL (7.4-10.4); Monocytes 3 % (0-10); Neutrophil 84 % (42-75); Platelet Count 229 thou/uL (130-400); Platelet Morphology Comment Appears Adequate; RBC Distribution Width 14.2 % (11.5-14.5); Red Blood Cell (RBC) Count 4.71 mill/uL (4.20-5.40); White Blood Cell (WBC) Count 10.6 thou/uL (4.8-10.8)
[2019-04-10 06:15] LABS: ALT (SGPT) 9 U/L (8-55); AST (SGOT) 7 U/L (5-34); Alkaline Phosphatase 100 U/L (40-110); Anion Gap 11 mmol/L (10-20); BUN (Urea Nitrogen) 7 mg/dL (9.8-20.1); Bilirubin, Total 0.2 mg/dL (0.2-1.2); Calc. Creatinine Clearance 124 mL/min (70-130); Calcium 8.5 mg/dL (7.8-10.44); Carbon Dioxide 25 mmol/L (22-29); Chloride 103 mmol/L (98-107); Estimated GFR-MDRD Greater than 90; Globulin 3.9 g/dL (2.4-3.5); Glucose 273 mg/dL (70-105); Potassium 4.1 mmol/L (3.5-5.1); Protein, Total 6.9 g/dL (6.0-8.3); Sodium 135 mmol/L (136-145)
[2019-04-10] MEDS: Cefepime 2 GM in Sodium Chloride 0.9% 100 ML IVPB SCH ×2 (08:01→20:10)
[2019-04-10] MEDS: Famotidine 20 MG TAB PO SCH ×2 (08:01→20:11)
[2019-04-10] MEDS ORDERED: FLU VACC QS2019-20(6MOS UP)/PF 60 MCG/0.5 ML SYRINGE IM ONE (09:00)
[2019-04-10] MEDS: Acetaminophen 500 MG TAB PO PRN (12:02)
[2019-04-10] MEDS: Benzonatate 100 MG CAP PO PRN (12:03)
[2019-04-10] MEDS: Guaifenesin DM 100-10/5 ML UDCUP PO PRN ×2 (12:06→20:12)
--- NOTE | 2019-04-10 17:24 | PDOC.HOSPP ---
- Subjective Encounter Date: 04/10/19 Encounter Time: 17:22 Subjective: Ms. Henderson was seen today in follow-up of Pneumonia and COPD. She says she is feeling better today. She has less cough and less shortness of breath. - Objective Vital Signs & Weight: Vital Signs (12 hours) Temp Pulse Resp BP Pulse Ox 04/10/19 16:37 98.4 F 83 20 118/67 98 04/10/19 12:15 98.0 F 84 22 H 97/55 L 97 04/10/19 10:55 81 20 98 04/10/19 08:00 98 04/10/19 07:51 98.2 F 76 24 H 126/78 98 04/10/19 06:54 75 20 100 Weight Weight 182 lb I&O: 04/09/19 04/10/19 04/11/19 06:59 06:59 06:59 Intake Total 2530 Balance 2530 Result Diagrams: 04/10/19 05:15 04/10/19 05:15 Hospitalist ROS - Medication Medications: Active Medications Generic Name Dose Route Start Last Admin Trade Name Freq PRN Reason Stop Dose Admin Acetaminophen 1,000 mg 04/09/19 16:16 04/10/19 12:02 Tylenol PO 1,000 mg Q6H PRN Administration Mild Pain (1-3) Albuterol/Ipratropium 3 ml 04/09/19 16:16 04/10/19 14:28 Duoneb NEB 3 ml [id number] KAITLYN Administration Benzonatate 100 mg 04/09/19 16:16 04/10/19 12:03 Tessalon PO 100 mg Q6H PRN Administration Cough Famotidine 20 mg 04/09/19 21:00 04/10/19 08:01 Pepcid PO 20 mg BID KAITLYN Administration Guaifenesin/Dextromethorphan 15 ml 04/09/19 16:16 04/10/19 12:06 Robitussin Dm PO 15 ml Q4H PRN Administration Cough Cefepime HCl 2 gm/ Sodium 100 mls @ 200 mls/hr 04/09/19 21:00 04/10/19 08:01 Chloride IVPB 100 mls Q12HR KAITLYN Administration Levofloxacin 750 mg/ Device 150 mls @ 100 mls/hr 04/09/19 17:00 04/10/19 15: 39 IVPB 150 mls Q24HR KAITLYN Administration Sodium Chloride 1,000 mls @ 75 mls/hr 04/09/19 16:16 04/10/19 03:48 Normal Saline 0.9% IV 1,000 mls .[id number] KAITLYN Administration Ibuprofen 400 mg 04/09/19 16:16 04/10/19 12:03 Motrin PO 400 mg Q4H PRN Administration Fever > 101 Methylprednisolone Sodium Succinate 40 mg 04/09/19 18:00 04/10/19 11:56 Solu-Medrol IVP 40 mg Q6HR KAITLYN Administration - Exam Eye: PERRL Heart: RRR, no murmur, no gallops, no rubs, normal peripheral pulses Respiratory: rales (+ rales at both bases), wheezes Gastrointestinal: soft, non-tender, non-distended, normal bowel sounds, no palpable masses Extremities: no cyanosis, no clubbing, no edema Skin: normal turgor, no lesions, no rashes Hosp A/P (1) Multifocal pneumonia Code(s): J18.9 - PNEUMONIA, UNSPECIFIED ORGANISM Status: Acute (2) Acute respiratory failure with hypoxemia Code(s): J96.01 - ACUTE RESPIRATORY FAILURE WITH HYPOXIA Status: Acute (3) COPD exacerbation Code(s): J44.1 - CHRONIC OBSTRUCTIVE PULMONARY DISEASE W (ACUTE) EXACERBATION Status: Acute - Plan * Acute on chronic respiratory failure- continue IV Levaquin * Continue IV steroids * Duones, and oxygen * Re-assess in the AM
[2019-04-11] MEDS: methylPREDNISolone Sod Succ 40 MG VIAL IVP SCH ×5 (00:16→23:08)
[2019-04-11] MEDS: Famotidine 20 MG TAB PO SCH ×2 (08:05→20:20)
[2019-04-11] MEDS: Cefepime 2 GM in Sodium Chloride 0.9% 100 ML IVPB SCH ×2 (08:05→20:20)
[2019-04-11] MEDS: Benzonatate 100 MG CAP PO PRN ×2 (10:53→17:52)
[2019-04-11] MEDS: Sodium Chloride 0.9% 1,000 ML IV SCH ×2 (10:53→23:08)
--- NOTE | 2019-04-11 14:06 | PDOC.HOSPP ---
- Subjective Encounter Date: 04/11/19 Encounter Time: 14:05 Subjective: Ms. Henderson was seen today in follow-up of COPD exacerbation and pneumonia. She says she doesn't feel so well today. She is still having cough, and she continues to be short of breath. - Objective Vital Signs & Weight: Vital Signs (12 hours) Temp Pulse Resp BP BP Pulse Ox 04/11/19 11:18 97.6 F 81 20 109/73 97 04/11/19 10:24 82 22 H 92 L 04/11/19 08:05 80 20 96 04/11/19 08:00 97.9 F 98 04/11/19 07:53 97.9 F 80 20 111/65 98 04/11/19 02:32 20 Weight Weight 182 lb I&O: 04/10/19 04/11/19 04/12/19 06:59 06:59 06:59 Intake Total 2530 2050 240 Balance 2530 2050 240 Result Diagrams: 04/10/19 05:15 04/10/19 05:15 Hospitalist ROS - Medication Medications: Active Medications Generic Name Dose Route Start Last Admin Trade Name Freq PRN Reason Stop Dose Admin Acetaminophen 1,000 mg 04/09/19 16:16 04/10/19 12:02 Tylenol PO 1,000 mg Q6H PRN Administration Mild Pain (1-3) Albuterol/Ipratropium 3 ml 04/09/19 16:16 04/11/19 10:24 Duoneb NEB 3 ml [id number] KAITLYN Administration Benzonatate 100 mg 04/09/19 16:16 04/11/19 10:53 Tessalon PO 100 mg Q6H PRN Administration Cough Famotidine 20 mg 04/09/19 21:00 04/11/19 08:05 Pepcid PO 20 mg BID KAITLYN Administration Guaifenesin/Dextromethorphan 15 ml 04/09/19 16:16 04/10/19 20:12 Robitussin Dm PO 15 ml Q4H PRN Administration Cough Cefepime HCl 2 gm/ Sodium 100 mls @ 200 mls/hr 04/09/19 21:00 04/11/19 08:05 Chloride IVPB 100 mls Q12HR KAITLYN Administration Levofloxacin 750 mg/ Device 150 mls @ 100 mls/hr 04/09/19 17:00 04/10/19 15: 39 IVPB 150 mls Q24HR KAITLYN Administration Sodium Chloride 1,000 mls @ 75 mls/hr 04/09/19 16:16 04/11/19 10:53 Normal Saline 0.9% IV 1,000 mls .[id number] KAITLYN Administration Ibuprofen 400 mg 04/09/19 16:16 04/10/19 12:03 Motrin PO 400 mg Q4H PRN Administration Fever > 101 Methylprednisolone Sodium Succinate 40 mg 04/09/19 18:00 04/11/19 11:46 Solu-Medrol IVP 40 mg Q6HR KAITLYN Administration - Exam Eye: PERRL Heart: RRR, no murmur, no gallops, no rubs, normal peripheral pulses Respiratory: rales (at both bases), wheezes (Bilateral. abit worse today than yesterday) Extremities: no cyanosis, no edema Hosp A/P (1) Multifocal pneumonia Code(s): J18.9 - PNEUMONIA, UNSPECIFIED ORGANISM Status: Acute (2) Acute respiratory failure with hypoxemia Code(s): J96.01 - ACUTE RESPIRATORY FAILURE WITH HYPOXIA Status: Acute (3) COPD exacerbation Code(s): J44.1 - CHRONIC OBSTRUCTIVE PULMONARY DISEASE W (ACUTE) EXACERBATION Status: Acute - Plan * Acute on chronic respiratory failure- a bit worse than yesterday- will continue IV antibiotics and IV steroids * Will keep one more day in the hospital * She has not had her hoe oxygen in about a year- will re-order- will check her Oxygen sats on room air. * Home tomorrow if stable
[2019-04-11] MEDS: Guaifenesin DM 100-10/5 ML UDCUP PO PRN (20:21)
[2019-04-11] MEDS: Acetaminophen 500 MG TAB PO PRN (20:24)
[2019-04-12] MEDS: methylPREDNISolone Sod Succ 40 MG VIAL IVP SCH ×2 (05:12→11:59)
[2019-04-12] MEDS: Cefepime 2 GM in Sodium Chloride 0.9% 100 ML IVPB SCH (08:26)
[2019-04-12] MEDS: Famotidine 20 MG TAB PO SCH (08:26)
[2019-04-12 08:54] LABS: #Lymphocytes 1.4 thou/uL (1.20-3.40); #Monocytes 0.5 thou/uL (0.11-0.59); %Basophils 0.2 % (0.0-1.0); %Eosinophils 0.1 % (0.0-10.0); %Lymphocytes 9.9 % (21.0-51.0); %Monocytes 3.8 % (0.0-10.0); Hemoglobin 13.1 g/dL (12.0-16.0); Mean Corpuscular HGB CONC 31.7 g/dL (32.0-36.0); Mean Corpuscular Hemoglobin 28.5 pg (27.0-31.0); Mean Corpuscular Volume 89.7 fL (78.0-98.0); Mean Platelet Volume 8.4 fL (7.4-10.4); Platelet Count 275 thou/uL (130-400); RBC Distribution Width 14.4 % (11.5-14.5); Red Blood Cell (RBC) Count 4.61 mill/uL (4.20-5.40); White Blood Cell (WBC) Count 13.9 thou/uL (4.8-10.8)
[2019-04-12 08:57] LABS: Anion Gap 13 mmol/L (10-20); BUN (Urea Nitrogen) 13 mg/dL (9.8-20.1); Calc. Creatinine Clearance 112 mL/min (70-130); Calcium 9.5 mg/dL (7.8-10.44); Carbon Dioxide 28 mmol/L (22-29); Chloride 99 mmol/L (98-107); Estimated GFR-MDRD Greater than 90; Glucose 332 mg/dL (70-105); Potassium 5.2 mmol/L (3.5-5.1); Sodium 135 mmol/L (136-145)
--- NOTE | 2019-04-12 11:26 | PDOC.HOSPP ---
- Subjective Encounter Date: 04/12/19 Encounter Time: 11:25 Subjective: Ms. Henderson was seen today in follow-up of COPD exacerbation and pneumonia. She says she is feeling better today, no new complaints. - Objective Vital Signs & Weight: Vital Signs (12 hours) Temp Pulse Resp BP Pulse Ox 04/12/19 08:00 98.4 F 76 20 127/77 93 L 04/12/19 06:40 96 12 04/12/19 02:05 20 Weight Weight 182 lb I&O: 04/11/19 04/12/19 04/13/19 06:59 06:59 06:59 Intake Total 2049 4670 240 Balance 2049 4670 240 Result Diagrams: 04/12/19 08:10 04/12/19 08:10 Hospitalist ROS - Medication Medications: Active Medications Generic Name Dose Route Start Last Admin Trade Name Freq PRN Reason Stop Dose Admin Acetaminophen 1,000 mg 04/09/19 16:16 04/11/19 20:24 Tylenol PO 1,000 mg Q6H PRN Administration Mild Pain (1-3) Albuterol/Ipratropium 3 ml 04/09/19 16:16 04/12/19 10:47 Duoneb NEB Not Given [id number] KAITLYN Benzonatate 100 mg 04/09/19 16:16 04/11/19 17:52 Tessalon PO 100 mg Q6H PRN Administration Cough Famotidine 20 mg 04/09/19 21:00 04/12/19 08:26 Pepcid PO 20 mg BID KAITLYN Administration Guaifenesin/Dextromethorphan 15 ml 04/09/19 16:16 04/11/19 20:21 Robitussin Dm PO 15 ml Q4H PRN Administration Cough Cefepime HCl 2 gm/ Sodium 100 mls @ 200 mls/hr 04/09/19 21:00 04/12/19 08:26 Chloride IVPB 100 mls Q12HR KAITLYN Administration Levofloxacin 750 mg/ Device 150 mls @ 100 mls/hr 04/09/19 17:00 04/11/19 17: 46 IVPB 150 mls Q24HR KAITLYN Administration Sodium Chloride 1,000 mls @ 75 mls/hr 04/09/19 16:16 04/11/19 23:08 Normal Saline 0.9% IV 1,000 mls .[id number] KAITLYN Administration Ibuprofen 400 mg 04/09/19 16:16 04/10/19 12:03 Motrin PO 400 mg Q4H PRN Administration Fever > 101 Methylprednisolone Sodium Succinate 40 mg 04/09/19 18:00 04/12/19 05:12 Solu-Medrol IVP 40 mg Q6HR KAITLYN Administration - Exam Eye: PERRL Heart: RRR, no murmur, no gallops, no rubs, normal peripheral pulses Respiratory: CTAB, no wheezes, no rales, no ronchi, normal chest expansion, no tachypnea, normal percussion Gastrointestinal: soft, non-tender, non-distended, normal bowel sounds, no palpable masses, no hepatomegaly, no splenomegaly Extremities: no cyanosis, no edema Hosp A/P (1) Multifocal pneumonia Code(s): J18.9 - PNEUMONIA, UNSPECIFIED ORGANISM Status: Acute (2) Acute respiratory failure with hypoxemia Code(s): J96.01 - ACUTE RESPIRATORY FAILURE WITH HYPOXIA Status: Acute (3) COPD exacerbation Code(s): J44.1 - CHRONIC OBSTRUCTIVE PULMONARY DISEASE W (ACUTE) EXACERBATION Status: Acute - Plan * Acute on chronic respiratory failure- improved * Home today on home oxygen
[2019-04-12 14:45] VITALS: BP 141/74; TEMP 98.2
[2019-04-12] MEDS: Sodium Chloride 0.9% 1,000 ML IV SCH (14:46)
--- NOTE | 2019-04-13 07:46 | DIS ---
DATE OF ADMISSION: 04/09/2019 DATE OF DISCHARGE: 04/12/2019 DISCHARGE DISPOSITION: Home. DISCHARGE DIAGNOSES: 1. Multifocal bacterial pneumonia. 2. Acute on chronic respiratory failure with hypoxemia. 3. Tobacco abuse. 4. Chronic hepatitis C. 5. Gastroesophageal reflux disease. DISCHARGE MEDICATIONS: Include; 1. Ventolin inhaler 2 puffs q.6 as needed. 2. Prednisone 10 mg daily. 3. Levaquin 500 mg daily. 4. Tessalon Perles 100 mg q.6 as needed. 5. Albuterol 2 puffs q.6 as needed. 6. Dulera 200/5 mcg 2 puffs twice a day. CODE STATUS: Full code. ALLERGIES: TO PENICILLIN. HOSPITAL COURSE: Ms. Henderson is a pleasant 54-year-old female, who presented to the emergency room complaining of cough as well as shortness of breath. She was evaluated and found to have a multifocal pneumonia. She was started on IV antibiotics as well as DuoNeb and steroids. She improved over the course of the next couple of days and was subsequently able to be discharged home. She does require home oxygen and have been out of her oxygen for quite some time, several months to even a year in fact. She was re-evaluated and found to still qualify and home oxygen was ordered for the patient. She will have to pay out of pocket unfortunately for this. She also will be following up at one of the community clinics in approximately 1 week. She plans to go to the [facility]. Job ID: [id number]
--- NOTE | 2019-04-14 01:48 | PQF ---
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 Clinical indicators are provided on the bottom of this form for your review Can you please further clarify the diagnosis of the patient based on the clinical indicators below? Please check appropriate box(es): [ ] Sepsis due to: (Pna, UTI, gangrenous gall bladder, etc.) [ ] Severe sepsis with acute organ dysfunction of: (Examples: respiratory failure, encephalopathy, acute kidney failure, other) [ ] Localized infection without sepsis [ ] Other diagnosis [ ] Unable to determine In addition, please specify: Present on Admission (POA): [ ] Yes [ ] No [ ] Unable to determine For continuity of documentation, please document condition throughout progress notes and discharge summary. Thank You. 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 All Rights Reserved [email or web address] [not provided] MTDD
== END 2019-04-12 15:54 | disposition home or self-care (01) | DRG 193 ==
LOC: ERS 11:15 → ERHOLD 12:48 → T4-B 15:56
PROVIDERS: ADMIT Family Medicine; ATTEND Family Medicine
DX: J15.9 Unspecified bacterial pneumonia (principal); J96.21 Acute and chronic respiratory failure with hypoxia; J44.0 Chronic obstructive pulmonary disease with (acute) lower respiratory infection; J44.1 Chronic obstructive pulmonary disease with (acute) exacerbation; B18.2 Chronic viral hepatitis C; K21.9 Gastro-esophageal reflux disease without esophagitis; Z99.81 Dependence on supplemental oxygen; Z86.718 Personal history of other venous thrombosis and embolism; Z79.01 Long term (current) use of anticoagulants; Z88.0 Allergy status to penicillin; Z79.51 Long term (current) use of inhaled steroids; Z87.891 Personal history of nicotine dependence
CPT/HCPCS: 36415; 80048; 80053; 85007; 85025; 85027; 90471; 90686; 94640; 94644; 96361; 96365; G0008; J0692; J1956; J2920; J3475; J3490; J7611; J7620

== ENCOUNTER 2020-01-17 10:55 | Outpatient (CLI) | payer OTHER ==
--- NOTE | 2020-01-17 11:46 | RAD ---
EXAM: 2 views of the left knee HISTORY: Left knee pain COMPARISON: None FINDINGS: No knee effusion is seen. There is no evidence of acute fracture or dislocation. No signifi cant degenerative changes are seen. IMPRESSION: Unremarkable exam
--- NOTE | 2020-01-17 12:22 | RAD ---
Chest 2 views HISTORY: Disability exam. COMPARISON: 04/09/2019. FINDINGS: Cardiac silhouette and pulmonary vasculature are unremarkable. Mediastinum is midline. Lung s remain somewhat hyperinflated with flattening of each hemidiaphragm. Calcified granulomata are consistent with healed granulomatous disease. No lobar consolidation, pleural fluid, or pneumothorax. IMPRESSION : Pulmonary hyperinflation and other chronic-type findings are stable.
== END 2020-01-17 10:56 | disposition home or self-care (01) ==
LOC: BICRAD 10:55
PROVIDERS: ATTEND Internal Medicine
DX: Z02.71 Encounter for disability determination (principal); R91.8 Other nonspecific abnormal finding of lung field
CPT/HCPCS: 71046

== ENCOUNTER 2021-02-28 04:37 | Inpatient (IN) | payer OTHER ==
[2021-02-28 08:49] LABS: Troponin I Less than 0.010 ng/mL (< 0.028)
[2021-02-28 08:54] LABS: Actual Bicarbonate (HCO3a) 29.4 mEq/L (22-28); Base Excess (BEa) 2.3 mEq/L (-2.0 to +3.0); CO2 Tension 55.8 mmHg (35.0-45.0); Calcium, Ionized (arterial) 1.24 mmol/L (1.12-1.30); Carboxyhemoglobin (COHb) 2.3 gm% (0.0-3.0); Hemoglobin (Hb) 14.4 g/dL (12.0-16.0); Potassium - ABG Lab 4.23 mmol/L (3.70-5.30); pH, Arterial 7.34 (7.35-7.45)
[2021-02-28 08:55] LABS: Puncture Site LRA
[2021-02-28] MEDS ORDERED: Acetaminophen 325 MG TAB PO PRN (09:05)
[2021-02-28] MEDS ORDERED: Cepastat Lozenges 1 LOZ PO PRN (09:05)
[2021-02-28] MEDS ORDERED: Ondansetron ODT 4 MG TAB PO PRN (09:05)
[2021-02-28] MEDS ORDERED: Benzonatate 100 MG CAP PO PRN (09:05)
[2021-02-28] MEDS ORDERED: hydrALAZINE 20 MG/ML VIAL SLOW IVP PRN (09:05)
[2021-02-28 10:12] VITALS: BMI 31.8
[2021-02-28] MEDS: Enoxaparin Sodium 40 MG/0.4 ML SYRINGE SC SCH (10:47)
[2021-02-28] MEDS: methylPREDNISolone Sod Succ 40 MG VIAL IVP SCH ×3 (10:47→21:20)
[2021-02-28] MEDS: Nicotine 14 MG PATCH TD SCH (10:48)
[2021-02-28 11:53] LABS: Troponin I Less than 0.010 ng/mL (< 0.028)
[2021-02-28] MEDS: Mometasone 200 MCG/Formoterol 5 MCG 120 PUFF INHALER INH SCH (18:57)
[2021-02-28] MEDS ORDERED: Calcium Carbonate 500 MG ChewTAB PO PRN (22:21)
[2021-03-01] MEDS: methylPREDNISolone Sod Succ 40 MG VIAL IVP SCH ×3 (04:30→17:10)
[2021-03-01 05:01] LABS: #Lymphocytes 1.3 thou/uL (1.20-3.40); #Monocytes 0.8 thou/uL (0.11-0.59); #Neutrophils 11.5 thou/uL (1.40-6.50); %Basophils 0.1 % (0.0-1.0); %Eosinophils 0.1 % (0.0-10.0); %Lymphocytes 9.6 % (21.0-51.0); %Monocytes 5.6 % (0.0-10.0); %Neutrophils 84.5 % (42.0-75.0); Hemoglobin 13.7 g/dL (12.0-16.0); Mean Corpuscular Hemoglobin 27.5 pg (27.0-31.0); Mean Corpuscular Volume 88.5 fL (78.0-98.0); Mean Platelet Volume 8.6 fL (7.4-10.4); Platelet Count 212 thou/uL (130-400); RBC Distribution Width 14.4 % (11.5-14.5); Red Blood Cell (RBC) Count 4.99 mill/uL (4.20-5.40); White Blood Cell (WBC) Count 13.6 thou/uL (4.8-10.8)
[2021-03-01 05:14] LABS: Anion Gap 9 mmol/L (10-20); BUN (Urea Nitrogen) 10 mg/dL (9.8-20.1); Calc. Creatinine Clearance 105 mL/min (70-130); Calcium 9.4 mg/dL (7.8-10.44); Carbon Dioxide 28 mmol/L (22-29); Chloride 99 mmol/L (98-107); Glucose 313 mg/dL (70-105); Potassium 4.3 mmol/L (3.5-5.1); Sodium 132 mmol/L (136-145)
[2021-03-01] MEDS: Mometasone 200 MCG/Formoterol 5 MCG 120 PUFF INHALER INH SCH ×2 (07:16→18:35)
[2021-03-01] MEDS: Amlodipine 5 MG TAB PO SCH (09:11)
[2021-03-01] MEDS: Lisinopril 20 MG TAB PO SCH (09:11)
[2021-03-01] MEDS: Hydrochlorothiazide 25 MG TAB PO SCH (09:11)
[2021-03-01] MEDS: Enoxaparin Sodium 40 MG/0.4 ML SYRINGE SC SCH (09:12)
[2021-03-01] MEDS: Saccharomyces boulardii 250 MG CAP PO SCH (09:12)
[2021-03-01] MEDS: Nicotine 14 MG PATCH TD SCH (09:20)
[2021-03-01] MEDS ORDERED: Dextrose 5% in Water 1,000 ML IV PRN (16:26)
[2021-03-01] MEDS ORDERED: HumaLOG 300 UNITS/3 ML VIAL SC PRN (16:26)
[2021-03-01] MEDS ORDERED: Dextrose 50% Abboject 50 ML SYRINGE SLOW IVP PRN (16:26)
[2021-03-01] MEDS: HumaLOG 300 UNITS/3 ML VIAL SC PRN (16:53)
[2021-03-01] MEDS ORDERED: guaiFENesin/Codeine 200 mg/20 mg 10 ml Cup PO PRN (18:31)
[2021-03-01] MEDS ORDERED: Atorvastatin Calcium 20 MG TAB PO SCH (21:00)
[2021-03-01] MEDS ORDERED: Montelukast Sodium 10 mg Tablet PO SCH (21:00)
[2021-03-02] MEDS: HumaLOG 300 UNITS/3 ML VIAL SC PRN (06:30)
[2021-03-02] MEDS: Mometasone 200 MCG/Formoterol 5 MCG 120 PUFF INHALER INH SCH (06:32)
[2021-03-02] MEDS ORDERED: predniSONE 20 MG TAB PO SCH (08:00)
[2021-03-02 08:24] VITALS: BP 126/60; TEMP 97.8
[2021-03-02] MEDS: Saccharomyces boulardii 250 MG CAP PO SCH (08:56)
[2021-03-02] MEDS: Hydrochlorothiazide 25 MG TAB PO SCH (08:56)
[2021-03-02] MEDS: Amlodipine 5 MG TAB PO SCH (08:57)
[2021-03-02] MEDS: Lisinopril 20 MG TAB PO SCH (08:58)
[2021-03-02] MEDS: Enoxaparin Sodium 40 MG/0.4 ML SYRINGE SC SCH (08:58)
[2021-03-02] MEDS: Nicotine 14 MG PATCH TD SCH (10:19)
== END 2021-03-02 12:10 | disposition home or self-care (01) | DRG 189 ==
LOC: ERS 04:37 → 2SW 05:29 → OBSVTOIN 03-01 16:22
PROVIDERS: ADMIT Internal Medicine; ATTEND Internal Medicine
DX: J96.21 Acute and chronic respiratory failure with hypoxia (principal); J44.1 Chronic obstructive pulmonary disease with (acute) exacerbation; I25.10 Atherosclerotic heart disease of native coronary artery without angina pectoris; I10 Essential (primary) hypertension; F17.210 Nicotine dependence, cigarettes, uncomplicated; R73.09 Other abnormal glucose; K21.9 Gastro-esophageal reflux disease without esophagitis; Z71.6 Tobacco abuse counseling; Z88.0 Allergy status to penicillin; Z79.899 Other long term (current) drug therapy; Z79.52 Long term (current) use of systemic steroids; Z86.718 Personal history of other venous thrombosis and embolism
CPT/HCPCS: 36415; 36416; 36600; 80048; 82805; 85025; 94640; 96365; 96372; 96375; 96376; 99285; G0378; J1650; J1815; J1956; J2920; J7512; J7620

== ENCOUNTER 2022-10-20 04:07 | Emergency (ER) | payer OTHER | END 2022-10-20 04:20 | disposition home or self-care (01) | LOC: ERS 04:07 | DX: J44.1 Chronic obstructive pulmonary disease with (acute) exacerbation (principal) | CPT/HCPCS: 99284 ==

== ENCOUNTER 2024-03-25 16:42 | Inpatient (IN) | payer MEDICARE, MEDICAID ==
[2024-03-25 17:23] VITALS: BMI 29.8
[2024-03-25] MEDS ORDERED: Ondansetron ODT 4 MG TAB PO PRN (17:41)
[2024-03-25] MEDS ORDERED: Ipratropium/Albuterol 3 ML NEB NEB PRN (17:49)
[2024-03-25] MEDS: Benzonatate 100 MG CAP PO PRN (18:14)
[2024-03-25] MEDS: Magnesium 2 GM/50 ML(in water) 2 GM in Premix 1 BAG IVPB SCH (18:21)
[2024-03-25] MEDS: Ipratropium/Albuterol 3 ML NEB NEB SCH (18:56)
[2024-03-25] MEDS: Mometasone 200 MCG/Formoterol 5 MCG 120 PUFF INHALER INH SCH (18:56)
[2024-03-25] MEDS: metroNIDAZOLE 500 MG in Premix 1 BAG IVPB SCH (19:19)
[2024-03-25] MEDS: guaiFENesin ER 600 MG TAB PO SCH (21:01)
[2024-03-26 03:13] LABS: Legionella Urinary Ag Negative (Negative); Strep pneumo Urine Ag NEGATIVE (NEGATIVE)
[2024-03-26 05:26] LABS: #Basophils Less than 0.03 10x3/uL (0.0-0.2); %Basophils 0.1 % (0.0-1.0); %Eosinophils 0.4 % (0.0-10.0); %Monocytes 13.1 % (0.0-10.0); Hematocrit 40.9 % (36.0-47.0); Hemoglobin 12.9 g/dL (12.0-16.0); Mean Corpuscular HGB CONC 31.5 g/dL (32.0-36.0); Mean Corpuscular Hemoglobin 27.3 pg (27.0-31.0); Mean Corpuscular Volume 86.5 fL (78.0-98.0); Mean Platelet Volume 10.1 fL (7.4-10.4); Platelet Count 161 10x3/uL (130-400); RBC Distribution Width 15.9 % (11.5-14.5); Red Blood Cell (RBC) Count 4.73 mill/uL (4.20-5.40)
[2024-03-26 05:45] LABS: Anion Gap 9 mmol/L (10-20); BUN (Urea Nitrogen) 8 mg/dL (9.8-20.1); Calc. Creatinine Clearance 122 mL/min (70-130); Calcium 8.7 mg/dL (7.8-10.44); Carbon Dioxide 24 mmol/L (22-29); Chloride 107 mmol/L (98-107); Estimated GFR 101; Glucose 177 mg/dL (70-105); Potassium 3.7 mmol/L (3.5-5.1); Sodium 136 mmol/L (136-145)
[2024-03-26] MEDS: methylPREDNISolone Sod Succ 40 MG VIAL IVP SCH ×2 (08:25→14:12)
[2024-03-26] MEDS: Enoxaparin 40 MG (0.4 mL) SYRINGE SC SCH (08:29)
[2024-03-26] MEDS: LevoFLOXacin 750 mg/D5W 750 MG in Premix 1 BAG IVPB SCH (08:31)
[2024-03-26] MEDS: Acetaminophen 325 MG TAB PO PRN (08:43)
[2024-03-26 10:02] LABS: Actual Bicarbonate (HCO3v) 28.2 mEq/L (22-28); Base Excess 2.4 mEq/L (-2.0 to +3.0); Calcium, Ionized (venous) 1.13 mmol/L (1.16-1.32); Chloride (VBG) 102 mmol/L (98-106); Hematocrit-VBG 39 % (36.0-47.0); Hemoglobin (Hb) 13.4 g/dL (11.7-16.0); Potassium (VBG) 4.18 mmol/L (3.70-5.30); Sodium 137 mmol/L (133-146); pH (venous) 7.385 (7.32-7.43)
[2024-03-26] MEDS: Cefepime 2 GM in Sodium Chloride 0.9% 100 ML IVPB SCH ×2 (11:24→19:48)
[2024-03-26 17:23] VITALS: BMI 29.8
[2024-03-26] MEDS: Doxycycline 100 MG CAP PO SCH (20:00)
[2024-03-27] MEDS: Cefepime 2 GM VIAL ONE (03:42)
[2024-03-27 04:14] LABS: #Basophils Less than 0.03 10x3/uL (0.0-0.2); #Eosinophils Less than 0.03 10x3/uL (0.0-0.7); %Basophils 0.2 % (0.0-1.0); %Lymphocytes 17.6 % (21.0-51.0); %Monocytes 8.6 % (0.0-10.0); %Neutrophils 73.3 % (42.0-75.0); Hematocrit 41.9 % (36.0-47.0); Hemoglobin 13.4 g/dL (12.0-16.0); Mean Corpuscular Hemoglobin 27.2 pg (27.0-31.0); Mean Platelet Volume 10.7 fL (7.4-10.4); Platelet Count 176 10x3/uL (130-400); RBC Distribution Width 16.3 % (11.5-14.5); Red Blood Cell (RBC) Count 4.93 mill/uL (4.20-5.40)
[2024-03-27 04:31] LABS: Anion Gap 14 mmol/L (10-20); BUN (Urea Nitrogen) 12 mg/dL (9.8-20.1); Calc. Creatinine Clearance 97 mL/min (70-130); Calcium 9.5 mg/dL (7.8-10.44); Carbon Dioxide 23 mmol/L (22-29); Chloride 102 mmol/L (98-107); Estimated GFR 86; Glucose 350 mg/dL (70-105); Magnesium 2.1 mg/dL (1.6-2.6); Potassium 4.8 mmol/L (3.5-5.1); Sodium 134 mmol/L (136-145)
[2024-03-27] MEDS ORDERED: Dextrose 5% in Water 1,000 ML IV PRN (10:34)
[2024-03-27] MEDS ORDERED: Insulin Regular, Human 100 UNIT/ML 10 ML VIAL SC PRN ×2 (10:34)
[2024-03-27] MEDS ORDERED: Glucagon 1 MG/ML KIT IM PRN (10:34)
[2024-03-27] MEDS ORDERED: Dextrose 50% Abboject 50 ML SYRINGE SLOW IVP PRN (10:34)
[2024-03-27] MEDS ORDERED: hydrALAZINE 20 MG/ML VIAL SLOW IVP PRN (11:44)
[2024-03-27] MEDS: Amlodipine 5 MG TAB PO SCH (12:36)
[2024-03-27] MEDS: Insulin Regular, Human 100 UNIT/ML 10 ML VIAL SC PRN (13:37)
[2024-03-27] MEDS: Benzonatate 100 MG CAP PO SCH (14:46)
[2024-03-27] MEDS: metroNIDAZOLE 500 MG TAB PO SCH (14:46)
[2024-03-27] MEDS: Insulin Glargine 30 UNITS/0.3 ML VIAL SC SCH (14:46)
[2024-03-27] MEDS: guaiFENesin/DM ER PO SCH (20:49)
[2024-03-27] MEDS: Famotidine 20 MG TAB PO SCH (20:49)
[2024-03-27] MEDS: Ondansetron PF 4 MG/2 ML Vial IVP PRN (21:30)
[2024-03-27] MEDS: methylPREDNISolone Sod Succ 40 MG VIAL IVP SCH (22:38)
[2024-03-28] MEDS: Amlodipine 5 MG TAB PO SCH (08:03)
[2024-03-28 08:32] LABS: Hematocrit 43.7 % (36.0-47.0); Mean Corpuscular Volume 84.2 fL (78.0-98.0); Mean Platelet Volume 10.3 fL (7.4-10.4); Platelet Count 198 10x3/uL (130-400); RBC Distribution Width 16.2 % (11.5-14.5); Red Blood Cell (RBC) Count 5.19 mill/uL (4.20-5.40)
[2024-03-28 08:38] LABS: Anion Gap 12 mmol/L (10-20); BUN (Urea Nitrogen) 13 mg/dL (9.8-20.1); Calc. Creatinine Clearance 115 mL/min (70-130); Calcium 9.3 mg/dL (7.8-10.44); Carbon Dioxide 25 mmol/L (22-29); Chloride 102 mmol/L (98-107); Estimated GFR 100; Glucose 259 mg/dL (70-105); Magnesium 2.2 mg/dL (1.6-2.6); Potassium 4.5 mmol/L (3.5-5.1); Sodium 134 mmol/L (136-145)
[2024-03-28 09:05] LABS: Hemoglobin A1c 5.5 % (4.0-6.0)
[2024-03-28 09:11] LABS: Band 3 % (5-11); Lymphocytes 10 % (21-51); Monocytes 7 % (0-10); Neutrophil 78 % (42-75); Ovalocytes SLIGHT = 2-5 cells HPF (0-1); Plasma Cells 1 % (0-0); Platelet Adequacy Comment Platelets Normal; Polychromasia MODERATE = 3-4 cells HPF (0-2); Reactive Lymphocytes 1 % (0-10)
[2024-03-28] MEDS: Insulin Glargine 30 UNITS/0.3 ML VIAL SC SCH (09:18)
[2024-03-28 12:25] VITALS: BP 146/71; TEMP 98.3
== END 2024-03-28 14:50 | disposition home or self-care (01) | DRG 177 ==
LOC: 2SE 16:42
PROVIDERS: ADMIT Internal Medicine; ATTEND Internal Medicine
DX: J15.69 Pneumonia due to other Gram-negative bacteria (principal); J96.21 Acute and chronic respiratory failure with hypoxia; J44.1 Chronic obstructive pulmonary disease with (acute) exacerbation; E87.1 Hypo-osmolality and hyponatremia; E11.65 Type 2 diabetes mellitus with hyperglycemia; I10 Essential (primary) hypertension; E78.5 Hyperlipidemia, unspecified; I25.10 Atherosclerotic heart disease of native coronary artery without angina pectoris; G47.33 Obstructive sleep apnea (adult) (pediatric); Z88.0 Allergy status to penicillin; Z99.81 Dependence on supplemental oxygen
CPT/HCPCS: 36415; 36416; 71045; 80048; 82805; 83036; 83605; 83735; 85025; 87070; 87081; 87205; 87449; 87899; 93005; 93010; 93306; 94640; J0692; J1650; J1815; J1956; J2405; J2919; J3475; J7620